=== PATIENT | female | born 1985 | race Caucasian/White ===

== ENCOUNTER 2021-07-18 16:28 | Inpatient (IN) | payer MEDICAID, SELFPAY ==
[2021-07-18 18:09] VITALS: BP 116/51; PULSE 95; RESP 18; TEMP 36.2; O2SAT 98
[2021-07-18] MEDS: zolpidem 5 mg Tablet 10 MG PO (20:46)
[2021-07-18] MEDS: methylphenidate 10 mg Tablet 30 MG PO (20:46)
[2021-07-18] MEDS: benztropine 1 mg Tablet 2 MG PO (20:46)
[2021-07-18 21:25] VITALS: BP 154/78; PULSE 88; RESP 16; TEMP 37; O2SAT 95
[2021-07-19 06:00] VITALS: BP 62/58; PULSE 60; RESP 17; TEMP 36.8; O2SAT 98
[2021-07-19] MEDS: desvenlafaxine 50 mg Tablet 100 MG PO (08:54)
[2021-07-19] MEDS: methylphenidate 10 mg Tablet 30 MG PO ×3 (08:55→21:56)
[2021-07-19] MEDS: paliperidone ER 3 mg Tablet PO (08:56)
[2021-07-19] MEDS: benztropine 1 mg Tablet 2 MG PO ×3 (08:56→21:56)
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
[2021-07-19 13:51] VITALS: BP 99/52; PULSE 74; RESP 17; TEMP 36.8; O2SAT 98
[2021-07-19 20:16] VITALS: BP 107/64; PULSE 72; RESP 16; TEMP 36.7; O2SAT 98
[2021-07-19] MEDS: zolpidem 5 mg Tablet 10 MG PO (21:56)
[2021-07-20 06:00] VITALS: BP 92/69; PULSE 68; RESP 16; TEMP 36.9; O2SAT 98
[2021-07-20] MEDS: methylphenidate 10 mg Tablet 30 MG PO ×3 (09:02→21:29)
[2021-07-20] MEDS: benztropine 1 mg Tablet 2 MG PO ×3 (09:03→21:30)
[2021-07-20] MEDS: desvenlafaxine 50 mg Tablet 100 MG PO (09:03)
--- NOTE | 2021-07-20 12:42 | PM.NPN ---
Subjective NPU Subjective: Interval history: The patient remains somewhat guarded on exam. She is hesitant and suspicious of all questions. She continues to deny audio or visual hallucinations, but will often pause as if she is listening to someone else. She reports no trouble with concentration when asked about these episodes. She reports feeling fine and says there is nothing wrong with her. She feels the medication is helping her but declined to elaborate in what ways it was helping. She reports no side effects related to medication. When asking about her plans for housing after discharge, she appears ambivalent. She says she is fine with either living in a long term or at the residence she was at prior to admission. She says she has not spoken to her brother who is the diabetes physician of the house she was living in prior to admission, but she says she had a conversation with his girlfriend. She declined elaborate on the quality or nature of the call. <AHSAN Tovar STDNT - Last Filed: 07/21/21 11:18> Interval history: Pt seen and discussed with med student. Agree with above. <Jose Ulloa MD - Last Filed: 07/25/21 20:43> Mental Status Exam MSE Comments: I met with the patient in the her room, and she was dressed in hospital scrubs and sloppily groomed. She was guarded, irritable, minimally cooperative, and often stared off into space. At least twice she asked that I repeat my question after she stared off into space, and stopped in the middle of a comment to stare into space. She did not continue the thought after that. Moderate psychomotor agitation. Speech is at a regular rate and rhythm, normal volume. Alert, oriented to person, place, and situation. Attention and concentration were impaired as described above. Memory is difficult to gauge due to her guardedness. Mood is irritable. Affect is irritable and suspicious. Thought process she appears to have periods where she loses focus on her point and abruptly stops talking. Thought content: Denies auditory and visual hallucinations but may be responding to unseen others. Paranoid ideation is noted. She denies current suicidal and homicidal ideation. Fund of knowledge is likely impaired. Language is intact to exam. Insight, judgment, and impulse control continue to appear to be quite limited. <AHSAN Tovar STDNT - Last Filed: 07/21/21 11:18> Pt seen and discussed with med student. Agree with above. <Jose Ulloa MD - Last Filed: 07/25/21 20:43> Vitals/I&O/Wt Last Vital Signs Temp 98.5 F 07/20/21 06:00 Pulse 68 07/20/21 06:00 Resp 16 07/20/21 06:00 BP 92/69 07/20/21 06:00 Pulse Ox 98 07/20/21 06:00 <AHSAN Tovar STDNT - Last Filed: 07/21/21 11:18> Weight last 48 hrs Weight 54.431 kg <Justin Coleman MED STDNT - Last Filed: 07/21/21 11:18> A&P Assessment and plan (1) Acute psychosis: Status: Resolved <AHSAN Tovar STDNT - Last Filed: 07/21/21 11:18> Additional A&P Information DELFIN SOMMER is a 35 year old female with paranoid delusions and responding to unseen others who was transferred from [facility] in [place], [place] after being medically stabilized and cleared in their ED. RECOMMENDATION AND PLAN: 1. We will increase Invega to 6 mg daily. 2. Continue every 15 minute checks for safety. 3. Encourage individual, group and milieu therapies. 4. Encourage sober living treatment after discharge at the highest level of care to which he is willing to commit. <AHSAN Tovar STDNT - Last Filed: 07/21/21 11:18> Pt seen and discussed with med student. Agree with above. <Jose Ulola MD - Last Filed: 07/25/21 20:43> Involuntary Hold Information 96 Hour Hold: 96 Hour Involuntary Admission: No <AHSAN Tovar STDNT - Last Filed: 07/21/21 11:18> Attestations NPU Medical Necessity Statement*: . <AHSAN Tovar STDNT - Last Filed: 07/21/21 11:18> Psychiatric hospitalization is medically necessary to prevent access to lethal means, to reevaluate medication, and to coordinate a safe discharge. Likely length of stay is 1 - 3 days. <Jose Ulloa MD - Last Filed: 07/25/21 20:43> Coding Level of Care Code Acute Gauntlet Pairer for Chg Fwd Diagnoses Acute psychosis F23
[2021-07-20 14:00] VITALS: BP 107/69; PULSE 71; RESP 17; TEMP 36.5; O2SAT 98
--- NOTE | 2021-07-20 15:00 | PC.OT ---
Pt did not attend p.m. OT group.
--- NOTE | 2021-07-20 15:29 | P.PN_ITS ---
Vitals/I&O/Wt Last Vital Signs Temp 97.7 F 07/20/21 14:00 Pulse 71 07/20/21 14:00 Resp 17 07/20/21 14:00 BP 107/69 07/20/21 14:00 Pulse Ox 98 07/20/21 14:00 Weight last 48 hrs Weight 54.431 kg Involuntary Hold Information 96 Hour Hold: 96 Hour Involuntary Admission: No Coding Level of Care Code Acute Basic Sciences Professor for Cali Duffy
--- NOTE | 2021-07-20 19:53 | PC.OT ---
Pt did not attend a.m. OT group.
[2021-07-20] MEDS: zolpidem 5 mg Tablet 10 MG PO (21:29)
[2021-07-20] MEDS: paliperidone ER 6 mg Tablet PO (21:29)
--- NOTE | 2021-07-20 21:30 | PC.NURSE ---
attempt made to give pt her Invega injection, pt refused it at this time stating she would take before she leaves tomorrow.
[2021-07-20 22:00] VITALS: BP 125/85; PULSE 87; RESP 16; TEMP 37; O2SAT 99
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
[2021-07-21 06:00] VITALS: RESP 18
[2021-07-21] MEDS: paliperidone palmitate 234 mg Syringe IM (08:32)
[2021-07-21] MEDS: methylphenidate 10 mg Tablet 30 MG PO (08:33)
[2021-07-21] MEDS: benztropine 1 mg Tablet 2 MG PO (08:33)
[2021-07-21] MEDS: desvenlafaxine 50 mg Tablet 100 MG PO (08:33)
--- NOTE | 2021-07-21 08:38 | PC.NURSE ---
INVSIMONE SUSTENNA 234 MG GIVEN IM ORDERED BY PHYSICIAN. INJECTION GIVEN IN LEFT DELTOID PT TOLERATED WELL. WILL CONT TO MONITOR INJECTION SITE FOR ANY REDNESS, SWELLING, OR IRRITATION. LOT [id number] EXP 07/2022
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
== END 2021-07-21 10:39 | disposition home or self-care (01) | DRG 885 ==
PROVIDERS: Admitting Provider Psychiatry & Neurology Child & Adolescent Psychiatry; Visit Provider Psychiatry & Neurology Child & Adolescent Psychiatry
DX: F23 Brief psychotic disorder (principal)
CPT/HCPCS: 96372